=== PATIENT | female | born 1955 | race Caucasian/White ===

== ENCOUNTER 2021-12-19 13:15 | Outpatient (RCR) | payer OTHER, SELFPAY ==
--- NOTE | 2021-11-06 09:27 | PT.OPE ---
PT [place] [facility] PT [facility] Out[facility] Eval Start: 11/06/21 07:50 Freq: Status: Active Protocol: Document 11/06/21 09:24 CJT (Rec: 11/06/21 09:27 CJT [id number]) E-Signed By Nitesh Sellers PT Physical Therapy Outpatient Evaluation Insurance Information Recert Due Date 02/04/22 Insurance Name [employer] Medical Diagnosis M54.9 - Back pain Treating Diagnosis M54.5 - Low back pain Referring Campbell Pedro MD Subjective Subjective Pt presents with back pain following an incident in which she was lifting a bag of grass. Pt reports that she felt something go, but did not have pain. Later that night she went to work and couldn't sit in chairs because this caused pain in L hip. Has had trouble standing up from the toilet at times. Pts pain was recently exacerbated while she was swimming. Pain is made worse with sitting, bending forward, pain relieves with standing. Pt has missed 3 days of work so far. Pt was prescribed mm relaxers and thinks these have helped althgouhg she does not enjoy taking them as they make her feel loopy. [place] and [place] involves frequent kneeling, lifting, carrying etc. 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 Pt notes tightness in L hip with resisted abduction, IR, ER. Palpation Pt reports pain/tenderness with palpation to L>R QL, glute med, glute min, and piriformis with spasms noted throughout L hip mm. Other/Pertinent Objective Spurling's compression, slump, SLR, THELMA, FADIR, SI compression/distraction all negative for reproduction of pts pain. Pt notes relief of symptoms with passive hip flexion with OP. Pelvis - level LLD - 81.5 cm bilaterally Assessment Assessment/Impression Pt is a 66 year old female who presents to [facility] PT clinic with complaints of L-sided LBP. Pts pain began when she was lifting a bag of grass at home and felt something go in her back. Pt had onset of pain later than evening while sitting at work. Pain has fluctuated since but was recently exacerbated when she was swimming. Pt has continued swimming and has not had issues with this although has had occasional pain when lying in bed at night. Pain occasionally radiates to her L buttock and anterior thigh. Pts X-ray shows degenerative changes at L6/S1 level. Presence of L6 vertebrae is noted in radiologists assessment. Testing is negative for disc herniation and radiculopathy at this time . Strength is 5/5 MMT for all LE motions although pain is noted with resisted testing of L hip mm. Minimal ROM deficits also noted in pts L hip ERs. It appears that Christine is dealing with significant muscle spasms and will benefit from stretching and core strengthening to improve the support of her pelvis and lumbar spine. Skilled PT services are medically necessary to address deficits and return patient to highest level of function. Recommend physical therapy sessions 1-2/week for 8-12 weeks. Pt agrees with this plan. Printout of HEP was given for I completion and pt gives verbal understanding of each exercise. Primary Functional Limitations Sitting, reaching, lifting, squatting, bending Plan of Care Rehabilitation Potential Excellent Physical Therapy Goals STG - To be completed in 2-3 weeks: 1. Pt will report reduction in back pain by factor of 2 so that they may perform all ADLs with tolerable level of pain. 2. Pt will demonstrate ability to perform pelvic tilt with good coordination as indication of appropriate firing of pelvic and lumbar stabilizing muscles to provide greater support for pelvis and lumbar spine. 3. Pt will demonstrate 5/5 MMT for all LE motions without reproduction of pain to provide greater support to pelvis and lumbar spine. LTG - To be completed in 8-12 weeks: 1. Pt to be I with HEP so that they may I manage progression of symptoms. 2. Pt will report ability to sleep through the night without waking due to pain so that they may wake well rested with reduced mental fatigue during working hours. 3. Pt will demonstrate ability to bend forward to heather shoes without increase in back pain so that they may perform similar activities at home without return of symptoms. 4. Pt will demonstrate 5/5 MMT for both upper and lower abdominals to provide greater support to pelvis and lumbar spine. 5. Pt will report ability to sit for up to 60 minutes without increase in back pain so that she may sit for meetings at work and ride in car without stopping to stretch. Treatment Plan/Direct Interventions Electrical Stimulation,Heat, Joint Mobilization,Manual Therapy,Neuromuscular Re-ed, Self-Care/Home Management, Therapeutic Exercises,Traction (Mechanical),Ultrasound Frequency/Duration 1-2/week for 8-12 weeks Patient Will Be Discharged From Therapy Completion of LTG(s),Skills Plateau,Independent w/HEP, Independently Progressing Evaluation Billing Untimed Code Treatment Minutes 30 PT Eval No Charge No Complexity Low Certification Information Initial Certification Date 11/06/21 Ending Certification Date 02/04/22
== END 2022-01-31 11:17 | disposition home or self-care (01) ==
PROVIDERS: PCP Family Medicine; Visit Provider Family Medicine
DX: M54.9 Dorsalgia, unspecified (principal); M54.50 Low back pain, unspecified; Z51.89 Encounter for other specified aftercare
CPT/HCPCS: 97110; 97112; 97140; 97161

== ENCOUNTER 2022-07-09 08:02 | Outpatient (CLI) | payer OTHER, SELFPAY | END 2022-07-09 08:03 | disposition home or self-care (01) | LOC: NFLDREF 07-10 11:04 | PROVIDERS: PCP Family Medicine; Referring Provider Family Medicine; Visit Provider Family Medicine | DX: E78.00 Pure hypercholesterolemia, unspecified (principal); I10 Essential (primary) hypertension | CPT/HCPCS: 80053; 80061 ==

== ENCOUNTER 2022-12-10 08:32 | Outpatient (CLI) | payer OTHER, SELFPAY | END 2022-12-10 08:33 | disposition home or self-care (01) | LOC: NFLDREF 14:46 | PROVIDERS: PCP Family Medicine; Referring Provider Family Medicine; Visit Provider Family Medicine | DX: E78.00 Pure hypercholesterolemia, unspecified (principal) | CPT/HCPCS: 80061 ==

== ENCOUNTER 2023-04-02 08:18 | Outpatient (CLI) | payer OTHER, SELFPAY | END 2023-04-02 08:19 | disposition home or self-care (01) | LOC: NFLDREF 04-04 05:48 | PROVIDERS: PCP Family Medicine; Referring Provider Family Medicine; Visit Provider Family Medicine | DX: E78.00 Pure hypercholesterolemia, unspecified (principal) | CPT/HCPCS: 80061; 80076 ==

== ENCOUNTER 2023-07-01 12:41 | Outpatient (CLI) | payer OTHER, SELFPAY | END 2023-07-01 12:42 | disposition home or self-care (01) | LOC: LKVREF 12:43 | PROVIDERS: PCP Family Medicine; Visit Provider Family Medicine | DX: R04.2 Hemoptysis (principal); R63.4 Abnormal weight loss | CPT/HCPCS: 80053 ==